=== PATIENT | female | born 1970 | race Native Hawaiian/Other Pacific Islander ===

== ENCOUNTER 2017-05-15 11:52 | Outpatient (CLI) | payer BC ==
[2017-05-15 12:56] LABS: PLATELET COUNT 260 K/uL (152-353)
[2017-05-15 13:57] LABS: SODIUM 135.7 mmol/L (136-145)
[2017-05-15 13:59] LABS: LDL CHOLESTEROL 67.3 mg/dL (0-99*)
== END 2017-05-15 12:55 | disposition home or self-care (01) ==
LOC: LABW 11:52
PROVIDERS: Family Medicine
DX: Z00.00 Encounter for general adult medical examination without abnormal findings (principal); N39.0 Urinary tract infection, site not specified; Z01.419 Encounter for gynecological examination (general) (routine) without abnormal findings; M54.5 Low back pain; E66.8 Other obesity; E55.9 Vitamin D deficiency, unspecified
CPT/HCPCS: 36415; 80053; 80061; 82043; 82306; 82570; 83735; 84439; 84443; 84550; 85027

== ENCOUNTER 2017-06-01 15:46 | Outpatient (CLI) | payer BC | END 2017-06-01 17:00 | disposition home or self-care (01) | LOC: US 15:46 | DX: R10.2 Pelvic and perineal pain (principal); N93.9 Abnormal uterine and vaginal bleeding, unspecified ==

== ENCOUNTER 2018-12-22 08:20 | Outpatient (CLI) | payer BC | END 2018-12-22 20:09 | disposition home or self-care (01) | LOC: MAMMO 08:20 | DX: Z12.31 Encounter for screening mammogram for malignant neoplasm of breast (principal) ==